=== PATIENT | male | born 1960 ===

== ENCOUNTER 2019-08-12 00:05 | Outpatient (CLI) | payer BC, SELFPAY ==
[2019-08-12 18:40] LABS: SARS-CoV-2 RNA PCR Negative
== END 2019-08-12 00:06 | disposition home or self-care (01) ==
LOC: ANHCOVIDDT 00:05
PROVIDERS: PCP Internal Medicine; Visit Provider Internal Medicine Gastroenterology
DX: Z01.818 Encounter for other preprocedural examination (principal); Z11.59 Encounter for screening for other viral diseases
CPT/HCPCS: 87635; C9803; U0003

== ENCOUNTER 2019-08-15 00:37 | Day surgery (SDC) | payer BC, SELFPAY ==
[2019-08-11 10:50] VITALS: BMI 32.8
[2019-08-15 06:29] VITALS: BP 135/91; PULSE 80; RESP 16; TEMP 36.8; O2SAT 96; BMI 32.3
[2019-08-15] MEDS: LACTATED RINGERS 1,000 ML 150 ML IV CONT (06:44)
--- NOTE | 2019-08-15 07:01 | WPDANESEPPF ---
Anes - Initial Pre Proc Eval Procedure: Operation Date: 08/15/19 07:30 Proposed Procedures p Screening Colonoscopy - Al Sierra MD Date/Time: 08/15/19 07:01 Surgeon: Al Sirera MD Pre Op Diagnosis: Neoplasm Screening Patient Data Age: 58 Gender: M Height: 1.8 m Weight: 105.3 kg Last Vital Signs Temp 36.8 C 08/15/19 06:29 Pulse 80 08/15/19 06:29 Resp 16 08/15/19 06:29 BP 135/91 H 08/15/19 06:29 Pulse Ox 96 08/15/19 06:29 Allergies Allergy/AdvReac Type Severity Reaction Status Date / Time No Known Allergies Allergy Verified 08/15/19 06:27 Home Medications Medication Instructions Recorded Confirmed Type atorvastatin 20 mg tablet 20 mg PO DAILY #90 tablet 05/09/19 08/15/19 Rx lisinopril 10 1 tablet PO DAILY #90 tablet 06/05/19 08/15/19 Rx mg-hydrochlorothiazide 12.5 mg tablet Patient hx anesthesia problems: none Family hx anesthesia problems: none PMFSH Past Medical History Medical History (Updated 08/15/19 @ 07:02 by Xavier Plascencia MD) BPH w/o urinary obs/LUTS Essential hypertension Hyperlipidemia Obesity Family History Family History (Updated 11/20/13 @ 07:13 by DOCTOR UNKNOWN) Mother Hypertension Father Cerebrovascular accident Acute myocardial infarction Social History Social History Smoking status: Never smoker Alcohol intake: current Anes - Eval Final PreProcedure Day of Procedure 08/15/19 07:01 Patient weight: obese Heart: regular rate and rhythm Lungs: clear to auscultation and normal air movement Airway: Mallampati scale class II Neurological: alert and oriented Last oral intake: >/= 8 hours ASA classification: III Emergent: no Anesthetic plan: proceed Anesthesia type and monitoring: general GIVS Informed Consent: The patient's anesthetic plan and its attendant risks and benefits were discussed with the patient/family/POA. Questions were solicited and answers provided to the satisfaction of the patient/family/POA.
--- NOTE | 2019-08-15 07:08 | P.HP_ITS ---
History of Present Illness History of Present Illness Consent: Risks, benefits, and alternatives have been discussed and questions answered. Patient agrees to proceed with procedure. Chief complaint: Neoplasm Screening Narrative: Dustin Morales is a 58 year old male For screening colonoscopy. He has high risk due to multiple family members on his mother side [facility] Past Medical History Medical History BPH w/o urinary obs/LUTS Essential hypertension Hyperlipidemia Obesity Family History Family History Mother Hypertension Father Cerebrovascular accident Acute myocardial infarction Social History Social History Smoking status: Never smoker Alcohol intake: current Meds Home Medications and Allergies Home Medications Medication Instructions Recorded Confirmed Type atorvastatin 20 mg tablet 20 mg PO DAILY #90 tablet 05/09/19 08/15/19 Rx lisinopril 10 1 tablet PO DAILY #90 tablet 06/05/19 08/15/19 Rx mg-hydrochlorothiazide 12.5 mg tablet Allergies Allergy/AdvReac Type Severity Reaction Status Date / Time No Known Allergies Allergy Verified 08/15/19 06:27 Vital Signs Vital Signs - 24 hr 08/15/19 06:29 Temperature 36.8 C Pulse Rate 80 Respiratory Rate 16 Blood Pressure 135/91 H Pulse Oximetry 96 Exam Resp: Auscultation: clear to auscultation bilaterally Cardio: Rate: regular rate Rhythm: regular rhythm GI: GI Palp: Yes Soft to palpation and No Tenderness to palpation present (GI) Assessment and Plan Assessment and plan (1) Colon cancer screening: Code(s): Z12.11 - Encounter for screening for malignant neoplasm of colon Status: Acute Assessment and Plan: Colonoscopy with possible biopsy or polypectomy or cautery or injection of substances.
[2019-08-15] MEDS: SIMETHICONE ORAL SUSPENSION 20 MG/0.3 ML 30 ML BOTTLE 0.6 ML IRRIGATION (07:37)
[2019-08-15 07:47] VITALS: BP 155/104; PULSE 70; RESP 16; O2SAT 95
[2019-08-15 07:57] VITALS: BP 143/90; PULSE 61; RESP 16; O2SAT 95
[2019-08-15 08:07] VITALS: BP 156/98; PULSE 63; RESP 16; O2SAT 96
== END 2019-08-15 08:14 | disposition home or self-care (01) ==
PROVIDERS: PCP Internal Medicine; Visit Provider Internal Medicine Gastroenterology
PROC: 0DJD8ZZ Inspection of Lower Intestinal Tract, Via Natural or Artificial Opening Endoscopic (ICD-10-PCS; CPT 45378; principal; 2019-08-15 07:30)
DX: Z12.11 Encounter for screening for malignant neoplasm of colon (principal); K57.30 Diverticulosis of large intestine without perforation or abscess without bleeding; Z80.0 Family history of malignant neoplasm of digestive organs; I10 Essential (primary) hypertension; E78.5 Hyperlipidemia, unspecified; N40.0 Benign prostatic hyperplasia without lower urinary tract symptoms; E66.9 Obesity, unspecified; Z68.32 Body mass index [BMI] 32.0-32.9, adult
CPT/HCPCS: 45378; J2704; J7120